=== PATIENT | female | born 1940 | race Caucasian/White ===

== ENCOUNTER 2018-03-07 05:51 | Day surgery (SDC) | payer MEDICARE ==
[2018-03-07] MEDS ORDERED: DIPRIVAN 200 MG/20 ML IV ONE (05:52)
[2018-03-07] MEDS ORDERED: Ketamine HCl 50 MG/ML IV ONE (05:52)
[2018-03-07] MEDS ORDERED: Lactated Ringers 1,000 ML IV SCH (06:30)
[2018-03-07 09:14] VITALS: BP 137/81; PULSE 59; O2SAT 99
--- NOTE | 2018-03-07 09:59 | OP ---
SURGERY DATE/TIME: 03/07/2018 0745 PREOPERATIVE DIAGNOSIS: Screening exam. History of constipation. POSTOPERATIVE DIAGNOSIS: Mild sigmoid diverticulosis otherwise normal colon. PROCEDURE: Colonoscopy. SURGEON: Dr. Klein. ANESTHESIA: MAC. Medications given by anesthesia department. HISTORY: The patient is a 77 year-old white female presenting now for endoscopic evaluation of her colon. She was appraised of the risks of the procedure including the risk of perforation, phlebitis, untoward reaction to medication, bleeding and missed lesions. The patient verbalized her understanding and desired to have the procedure performed. DESCRIPTION OF PROCEDURE: The patient was given the medications by the anesthesia department. She had continuous pulse oximetry, ECG monitoring, intermittent blood pressure monitoring and tidal CO2 monitoring during the examination. She was placed in the left lateral decubitus position. A digital rectal examination was performed and revealed normal anal sphincter tone and no masses. The flexible Olympus pediatric colonoscope was used to intubate the rectum. A view of the colon was developed sequentially to the cecum. Upon insertion and withdrawal, including a retroflex view in the rectum there was noted mild sigmoid diverticula but otherwise no other mucosal lesions were encountered. The scope was removed from the patient who tolerated the procedure well and was sent back to OP recovery in good condition. The prep was noted to be good.
== END 2018-03-07 09:15 | disposition home or self-care (01) ==
LOC: SDC 05:51
PROVIDERS: ATTEND Family Medicine
PROC: 0DJD8ZZ Inspection of Lower Intestinal Tract, Via Natural or Artificial Opening Endoscopic (ICD-10-PCS; principal; 2018-03-07)
DX: Z12.11 Encounter for screening for malignant neoplasm of colon (principal); K59.00 Constipation, unspecified; K57.30 Diverticulosis of large intestine without perforation or abscess without bleeding; E78.5 Hyperlipidemia, unspecified; E03.9 Hypothyroidism, unspecified; Z98.61 Coronary angioplasty status
CPT/HCPCS: 99100; J2704

== ENCOUNTER 2020-10-22 12:44 | Day surgery (SDC) | payer MEDICARE ==
[2020-10-22] MEDS ORDERED: Depo-Medrol 40 MG/ML IM ONE (12:45)
[2020-10-22] MEDS ORDERED: Sodium Chloride 0.9(Preservative Free) 10 ML IJ ONE (12:45)
[2020-10-22] MEDS ORDERED: Xylocaine 1% Vial 30 ML PF IJ ONE (12:45)
--- NOTE | 2020-10-22 15:18 | XRAY ---
Indication: Left L4-S1 transforaminal VALARIE. Intraoperative fluoroscopy was provided for 36 seconds. 4 digital spot images submitted for interpretation demonstrates posterior needle tips projecting over the expected left L4 and L5 nerve roots. Small amount of contrast injected for needle tip placement. Correlate with intraoperative findings/report.
--- NOTE | 2020-10-22 17:18 | XRAY ---
36 seconds fluoroscopy time in surgery for left L4-S1 transforaminal VALARIE.
== END 2020-10-22 15:12 | disposition home or self-care (01) ==
LOC: SDC-PAIN 12:44
PROVIDERS: ATTEND Psychiatry & Neurology Pain Medicine
DX: M54.16 Radiculopathy, lumbar region (principal); Z79.899 Other long term (current) drug therapy
CPT/HCPCS: 64483; 64484; 72100; 77003; J1030; J2001; Q9966

== ENCOUNTER 2024-02-15 15:47 | Day surgery (SDC) | payer MEDICARE ==
[2024-02-15] MEDS ORDERED: Sodium Chloride 0.9(Preservative Free) 10 ML IJ ONE (15:48)
[2024-02-15] MEDS ORDERED: Decadron 4 MG INJ IV ONE (15:48)
[2024-02-15] MEDS ORDERED: LIDOCAINE HCL 1% 50 MG/5 ML VL PF IJ ONE (15:48)
[2024-02-15] MEDS ORDERED: Lactated Ringers 1,000 ML IV ONE (17:24)
--- NOTE | 2024-02-15 19:07 | XRAY ---
Indication: Cervical VALARIE. Intraoperative fluoroscopy provided for 24 seconds. 2 digital spot image submitted for interpretation demonstrates posterior needle tip projecting posterior to cervical thoracic junction. Small amount of contrast injected for needle tip placement. Correlate with intraoperative findings/report.
--- NOTE | 2024-02-16 08:50 | XRAY ---
24 seconds of fluoroscopy was used in surgery for a cervical VALARIE.
== END 2024-02-15 17:40 | disposition home or self-care (01) ==
LOC: SDC-PAIN 15:47
PROVIDERS: ATTEND Psychiatry & Neurology Pain Medicine
DX: M54.12 Radiculopathy, cervical region (principal)
CPT/HCPCS: 62321; 72040; 77003; J1100; J2001; Q9966

== ENCOUNTER 2024-09-26 15:33 | Day surgery (SDC) | payer MEDICARE, OTHER ==
[2024-09-26] MEDS ORDERED: Decadron 4 MG INJ IV ONE (15:34)
[2024-09-26] MEDS ORDERED: Sodium Chloride 0.9(Preservative Free) 10 ML IJ ONE (15:34)
[2024-09-26] MEDS ORDERED: LIDOCAINE HCL 1% AMPUL 5 ML IJ ONE (15:34)
--- NOTE | 2024-09-26 20:55 | XRAY ---
Indication: Cervical VALARIE. Intraoperative fluoroscopy provided for 17 second. 3 digital spot image submitted for interpretation demonstrates posterior needle tip projecting posterior to cervical thoracic junction. Small amount of contrast injected for needle tip placement. Correlate with intraoperative findings/report.
--- NOTE | 2024-09-27 09:10 | XRAY ---
17 seconds of fluoroscopy was used in surgery for a cervical VALARIE.
== END 2024-09-26 18:37 ==
LOC: SDC-PAIN 15:33
PROVIDERS: ATTEND Psychiatry & Neurology Pain Medicine
DX: M54.12 Radiculopathy, cervical region (principal)
CPT/HCPCS: 62321; 72040; 77003; J1100; Q9966